=== PATIENT | male | born 1990 | race Hispanic/Latino ===

== ENCOUNTER 2018-05-12 13:41 | Emergency (ER) | payer OTHER, SELFPAY | END 2018-05-12 14:35 | disposition home or self-care (01) | LOC: ERS 13:41 | DX: K03.81 Cracked tooth (principal); K02.9 Dental caries, unspecified; F17.210 Nicotine dependence, cigarettes, uncomplicated; J45.909 Unspecified asthma, uncomplicated | CPT/HCPCS: 99283 ==